=== PATIENT | female | born 1985 | race Caucasian/White ===

== ENCOUNTER 2018-01-16 23:15 | Inpatient (IN) | payer BC ==
[~2018-01-16] VITALS: Ht 175.3 cm; Wt 63.3 kg
[2018-01-16] MEDS ORDERED: PANTOPRAZOLE 80 MG in SODIUM CHLORIDE 0.9% 100 ML IV SCH (23:19)
[2018-01-16] MEDS ORDERED: SODIUM CHLORIDE 0.9% 1,000 ML IV ONE (23:19)
[2018-01-16] MEDS ORDERED: SODIUM CHLORIDE FLUSH 10ML SYR IVF ONE (23:30)
[2018-01-16] MEDS ORDERED: SODIUM CHLORIDE 0.9% 1,000ML IVBOLUS ONE (23:30)
[2018-01-16] MEDS ORDERED: PANTOPRAZOLE 40 MG IV IVPush ONE (23:30)
[2018-01-16] MEDS ORDERED: PANTOPRAZOLE 40 MG IV ONE (23:31)
[2018-01-16 23:47] LABS: INTERNATIONAL NORMALIZED RATIO 1.07 (0.93-1.1); PROTHROMBIN TIME 11.1 Seconds (9.6-11.5)
[2018-01-16 23:48] LABS: ALANINE AMINOTRANSFERASE 15 U/L (12-78); ALBUMIN 2.7 g/dL (3.4-5.0); ANION GAP 4 mmol/L (5-15); CALCIUM 8.1 mg/dL (8.5-10.1); CHLORIDE 112 mmol/L (98-107); CREATININE 0.67 mg/dL (0.55-1.02)
[2018-01-16 23:53] LABS: ALKALINE PHOSPHATASE 37 U/L (45-117); BILIRUBIN,TOTAL 0.2 mg/dL (0.2-1.0)
[2018-01-16 23:56] LABS: MEAN CORPUSCULAR HEMOGLOBIN 30.7 pg (27.0-34.8); MEAN CORPUSCULAR HGB CONC 34.5 g/dL (32.4-35.8); MEAN CORPUSCULAR VOLUME 89.1 fL (80-100); MEAN PLATELET VOLUME 9.2 fL (7.4-10.4); PLATELET COUNT 205 x10^3/uL (130-400); RED BLOOD COUNT 1.99 x10^6/uL (3.82-5.3)
[2018-01-17] VITALS (9 sets, daily range): BP systolic 89–103; BP diastolic 42–63
[2018-01-17] MEDS ORDERED: PROPOFOL 10 MG/ML, 20ML ONE ×3 (00:38→01:09)
[2018-01-17] MEDS ORDERED: PROPOFOL 10 MG/ML, 20ML IVPush ONE (01:00)
[2018-01-17 01:03] LABS: BASOPHILS # (AUTO) 0.04 x10^3/uL (0-0.1); BASOPHILS % (AUTO) 0 % (0-1); EOSINOPHILS # (AUTO) 0.09 x10^3/uL (0-0.4); EOSINOPHILS % (AUTO) 1 % (1-7); LYMPHOCYTES # (AUTO) 2.13 x10^3/uL (1-3.4); LYMPHOCYTES % (AUTO) 19 % (22-44); MD SCAN; MONOCYTES # (AUTO) 0.81 x10^3/uL (0.2-0.8); MONOCYTES % (AUTO) 7 % (2-9); NEUTROPHILS # (AUTO) 8.44 x10^3/uL (1.8-6.8); NEUTROPHILS % (AUTO) 73 % (42-75)
[2018-01-17] MEDS ORDERED: morphine SULFATE 10 MG/ML, 1ML IVPush PRN (01:30)
[2018-01-17] MEDS ORDERED: hydrALAzine 20 MG/ML, 1ML IVPush PRN (01:30)
[2018-01-17] MEDS ORDERED: OXYcodone IR 5MG TABLET PO PRN (01:30)
[2018-01-17] MEDS ORDERED: DOCUSATE 100 MG CAPSULE PO PRN (01:30)
[2018-01-17 01:54] LABS: FREE T4 (FREE THYROXINE) 1.28 ng/dL (0.76-1.46); THYROID STIMULATING HORMONE 3.32 mIU/L (0.358-3.740)
[2018-01-17 02:17] LABS: CULTURE INDICATED? YES; MICROSCOPIC INDICATED
[2018-01-17 05:25] LABS: ALBUMIN 2.2 g/dL (3.4-5.0); CHLORIDE 119 mmol/L (98-107)
[2018-01-17 05:28] LABS: ALANINE AMINOTRANSFERASE 13 U/L (12-78); ALKALINE PHOSPHATASE 30 U/L (45-117); BILIRUBIN,TOTAL 0.7 mg/dL (0.2-1.0); CHOL/HDL RATIO 2.5; CHOLESTEROL, TOTAL 61 mg/dL (140-239); CREATININE 0.54 mg/dL (0.55-1.02); HDL CHOL % 39 % (28-40); HDL CHOLESTEROL (DIRECT) 24 mg/dL (40-60); LDL CHOLESTEROL,CALCULATED 12 mg/dL (54-169); LDL/HDL RATIO 0.5 (0.5-3.0); TRIGLYCERIDES 127 mg/dL (50-200); VLDL CHOLESTEROL 25 mg/dL (0-25)
[2018-01-17 05:48] LABS: ANION GAP 4 mmol/L (5-15)
[2018-01-17 08:20] LABS: FOLATE LEVEL 15.7 ng/mL (3.1-17.5)
[2018-01-17] MEDS: SODIUM CHLORIDE 0.9% 1,000 ML IV SCH ×2 (08:27→16:22)
[2018-01-17] MEDS ORDERED: CYANOCOBALAMIN 1,000 MCG/ML, 1ML IM ONE (09:00)
[2018-01-17] MEDS: CYANOCOBALAMIN 1,000 MCG TABLET PO SCH (10:48)
[2018-01-17] MEDS: IRON SUCROSE COMPLEX 100MG/5ML IV SCH (10:50)
[2018-01-17] MEDS: BUTALB/APAP/CAFFEINE 50MG/325MG/40MG PO PRN (11:45)
[2018-01-17] MEDS: SUCRALFATE 1 GM/10 ML UDC PO SCH ×3 (11:45→20:29)
[2018-01-17] MEDS: PANTOPRAZOLE 80 MG in SODIUM CHLORIDE 0.9% 100 ML IV SCH ×2 (11:57→20:29)
[2018-01-17] MEDS ORDERED: PANTOPRAZOLE 80 MG in SODIUM CHLORIDE 0.9% 100 ML IV SCH (23:19)
[2018-01-18] MEDS: BUTALB/APAP/CAFFEINE 50MG/325MG/40MG PO PRN (04:06)
[2018-01-18] MEDS: PANTOPRAZOLE 80 MG in SODIUM CHLORIDE 0.9% 100 ML IV SCH (05:55)
[2018-01-18] MEDS: SUCRALFATE 1 GM/10 ML UDC PO SCH ×4 (08:27→20:42)
[2018-01-18] MEDS: IRON SUCROSE COMPLEX 100MG/5ML IV SCH (08:27)
[2018-01-18] MEDS: CYANOCOBALAMIN 1,000 MCG TABLET PO SCH (08:27)
[2018-01-18 08:55] VITALS: BP 101/63
[2018-01-18 12:56] LABS: ANION GAP 8 mmol/L (5-15); CALCIUM 8.4 mg/dL (8.5-10.1); CHLORIDE 110 mmol/L (98-107)
[2018-01-18 12:57] LABS: CREATININE 0.63 mg/dL (0.55-1.02)
[2018-01-18 13:53] VITALS: BP 104/67
[2018-01-18] MEDS ORDERED: POTASSIUM CHLORIDE 20 MEQ TAB.ER.PRT PO ONE (17:00)
[2018-01-18 19:10] VITALS: BP 94/58
[2018-01-18] MEDS: OMEPRAZOLE 20 MG CAPSULE.DR PO SCH (20:42)
[2018-01-19 01:50] VITALS: BP 92/55
[2018-01-19 04:48] LABS: BASOPHILS # (AUTO) 0.05 x10^3/uL (0-0.1); BASOPHILS % (AUTO) 1 % (0-1); EOSINOPHILS % (AUTO) 6 % (1-7); LYMPHOCYTES % (AUTO) 24 % (22-44); MD NO; MEAN CORPUSCULAR HGB CONC 33.5 g/dL (32.4-35.8); MEAN CORPUSCULAR VOLUME 92.5 fL (80-100); MEAN PLATELET VOLUME 9.4 fL (7.4-10.4); MONOCYTES % (AUTO) 9 % (2-9); NEUTROPHILS % (AUTO) 60 % (42-75); PLATELET COUNT 158 x10^3/uL (130-400); RED BLOOD COUNT 3.21 x10^6/uL (3.82-5.3); RED CELL DISTRIBUTION WIDTH 14.6 % (9.6-15.2)
[2018-01-19 04:56] LABS: CHLORIDE 108 mmol/L (98-107)
[2018-01-19 05:09] LABS: ALANINE AMINOTRANSFERASE 19 U/L (12-78); ALBUMIN 2.7 g/dL (3.4-5.0); ALKALINE PHOSPHATASE 43 U/L (45-117); ANION GAP 6 mmol/L (5-15); BILIRUBIN,TOTAL 0.5 mg/dL (0.2-1.0); CALCIUM 8.2 mg/dL (8.5-10.1); CREATININE 0.75 mg/dL (0.55-1.02)
[2018-01-19] MEDS: SUCRALFATE 1 GM/10 ML UDC PO SCH ×2 (06:23→11:44)
[2018-01-19 06:46] VITALS: BP 100/68
[2018-01-19] MEDS: CYANOCOBALAMIN 1,000 MCG TABLET PO SCH (09:00)
[2018-01-19] MEDS: IRON SUCROSE COMPLEX 100MG/5ML IV SCH (09:49)
[2018-01-19] MEDS: OMEPRAZOLE 20 MG CAPSULE.DR PO SCH (09:50)
[2018-01-19] MEDS ORDERED: OMEP-110 PO (11:00)
[2018-01-19] MEDS ORDERED: CYAN10005 PO (11:00)
[2018-01-19 12:32] VITALS: BP 102/62
== END 2018-01-19 14:05 | disposition home or self-care (01) | DRG 377 ==
LOC: ED 01-17 02:11 → EDIP 01-17 02:12 → CCU 01-17 07:46 → 4NOR 01-18 08:52 → DCLOUNGE 01-19 13:54
PROVIDERS: ADMIT Internal Medicine; ATTEND Internal Medicine
PROC: 0W3P8ZZ Control Bleeding in Gastrointestinal Tract, Via Natural or Artificial Opening Endoscopic (ICD-10-PCS; 2018-01-17)
PROC: 30233N1 Transfusion of Nonautologous Red Blood Cells into Peripheral Vein, Percutaneous Approach (ICD-10-PCS; principal; 2018-01-17 12:20)
DX: K26.4 Chronic or unspecified duodenal ulcer with hemorrhage (principal); E43 Unspecified severe protein-calorie malnutrition; D62 Acute posthemorrhagic anemia; K29.50 Unspecified chronic gastritis without bleeding; Z68.20 Body mass index [BMI] 20.0-20.9, adult
CPT/HCPCS: 36415; 36430; 80048; 80053; 80061; 80307; 81001; 82607; 82728; 82746; 83036; 83540; 83550; 83735; 84100; 84439; 84443; 84703; 85014; 85018; 85025; 85610; 85730; 86677; 86850; 86900; 86923; 87081; 87086; 93005; 96365; 96366; 99152; 99153; G0378; J1756; J2704; C9113; J3420; J7030; P9016